=== PATIENT | female | born 1985 | race Caucasian/White ===

== ENCOUNTER → 2017-09-28 | Outpatient (CLI) | payer OTHER ==
[~2017-09-28] MED LIST: PREN-127 PO
== END ==
LOC: LAB 11:01
PROVIDERS: ATTEND Student in an Organized Health Care Education/Training Program
DX: Z34.91 Encounter for supervision of normal pregnancy, unspecified, first trimester (principal)
CPT/HCPCS: 87491; 87591

== ENCOUNTER → 2017-12-20 | Outpatient (CLI) | payer OTHER ==
[~2017-12-20] MED LIST changes: +FLU60VIA41 IM
--- NOTE | 2017-12-20 22:51 | RADIOLOGY IMAGING REPORT ---
FACILITY: [facility] [place] PATIENT NAME: Leatha Barragan : 1985 MR: [id number] V: [id number] EXAM DATE: ORDERING PHYSICIAN: IGNACIO SALAMANCA TECHNOLOGIST: Location: [facility] Patient: Leatha Barragan : 1985 Visit/Account:[id number] Date of Sevice: 12/20/2017 EXAMINATION: Transabdominal OB Ultrasound > 14 weeks with anatomic evaluation HISTORY: Anatomic survey Gestational age: 20 weeks 4 days, based on an CAMMIE of 05/05/2018. LMP(c): 07/29/2017. COMPARISON: None. FINDINGS: Intrauterine gestations: one presentation: Variable heart rate: 156 bpm Amniotic fluid index: 18.7 cm Largest amniotic fluid pocket 5.7 cm Placenta: Anterior/fundal without previa. Uterus: gravid, otherwise normal Maternal adnexa: Grossly negative. Maternal ovaries are not visualized. Cervix: Closed and long. Cervical length measures 4.8 cm. Gestational Parameters: BPD: 4.98 cm, 21 weeks 1 day HC: 18.49 cm, 20 weeks 6 days AC: 15.36 cm, 20 weeks 4 days FL: 3.31 cm, 20 weeks 3 days Average ultrasound age (AUA): 20 weeks 6 days Estimated weight (EFW): 359 grams +/- 53 grams EFW for LMP: 42nd percentile Anatomic Survey: The palate is suboptimally visualized. Remainder of the imaged anatomy is within normal l imits. Intracranial structures, 4-chamber heart, stomach, kidneys, urinary bladder, spine, 3-vessel cord and cord insertion are unremarkable. Two upper and two lower extremities visualized. Cardiac ventricula r outflow tracts, nose and lips are unremarkable in appearance. IMPRESSION: 1. Single live intrauterine gestation in variable presentation. 2. Average ultrasound age 20 weeks and 6 days, which correlates well with the reported clinical age. 3. Suboptimal visualization of the palate. Visualized anatomy is otherwise unremarkable. Patient is reportedly being brought back for additional anatomic imaging. Report Dictated By: Efrem Mcnulty MD at 12/20/2017 10:35 PM Report E-Signed By: Efrem Mcnulty MD at 12/20/2017 10:48 PM WSN:[id number]
== END ==
LOC: RAD 07:56
PROVIDERS: ATTEND Student in an Organized Health Care Education/Training Program
DX: Z34.92 Encounter for supervision of normal pregnancy, unspecified, second trimester (principal); Z3A.20 20 weeks gestation of pregnancy

== ENCOUNTER → 2018-01-04 | Outpatient (CLI) | payer OTHER | LOC: LAB 16:42 | PROVIDERS: ATTEND Student in an Organized Health Care Education/Training Program | DX: O26.899 Other specified pregnancy related conditions, unspecified trimester (principal) | CPT/HCPCS: 87088 ==

== ENCOUNTER → 2018-02-25 | Outpatient (CLI) | payer OTHER ==
[~2018-02-25] VITALS: Ht 167.6 cm; Wt 70.3 kg
[~2018-02-25] MED LIST changes: +ACETAMINOPHEN 325 MG TAB PO PRN; +DIPH0.5D12 IM
[2018-02-25 09:30] VITALS: BP 110/73; Ht 167.6 cm; Wt 70.3 kg
== END ==
LOC: L&D 09:10 → OB 09:10 → UNDOADMIN 09:10 → UNDODISIN 11:45 → EDSTATUS 03-01 07:27
PROVIDERS: ATTEND Student in an Organized Health Care Education/Training Program
DX: O26.893 Other specified pregnancy related conditions, third trimester (principal); W00.0XXA Fall on same level due to ice and snow, initial encounter; Z3A.30 30 weeks gestation of pregnancy
CPT/HCPCS: 59025

== ENCOUNTER → 2018-03-21 | Outpatient (CLI) | payer OTHER ==
[2018-02-25 09:30] VITALS: BMI 25.0
[~2018-03-21] MED LIST changes: -ACETAMINOPHEN 325 MG TAB PO PRN
== END ==
LOC: LAB 15:57
PROVIDERS: ATTEND Student in an Organized Health Care Education/Training Program
DX: O42.90 Premature rupture of membranes, unspecified as to length of time between rupture and onset of labor, unspecified weeks of gestation (principal)
CPT/HCPCS: 84112

== ENCOUNTER → 2018-03-28 | Outpatient (CLI) | payer OTHER ==
[2018-02-25 09:30] VITALS: BMI 25.0
[~2018-03-28] MED LIST changes: +CLIN300C99 PO; +FLUC150T40 PO
--- NOTE | 2018-03-28 13:11 | RADIOLOGY IMAGING REPORT ---
FACILITY: [facility] [place] PATIENT NAME: Leatha Barragan : 1985 MR: [id number] V: [id number] EXAM DATE: ORDERING PHYSICIAN: IGNACIO SALAMANCA TECHNOLOGIST: [facility] Patient: Leatha Barragan : 1985 Visit/Account:[id number] Date of Sevice: 03/28/2018 EXAMINATION: Limited Transabdominal OB Ultrasound >14 wks Without Full Anatomic Survey 03/28/2018 10:2 8 AM HISTORY: Possible PPROM COMPARISON: 12/22/2017, 12/20/2017 FINDINGS: Intrauterine gestations: one presentation: Breech, spine to maternal left heart rate: 130 bpm Amniotic fluid index: 19.5 cm Largest amniotic fluid pocket 6.9 cm Placenta: Posterior, wrapping towards the anterior wall without previa Uterus: gravid, otherwise normal Maternal adnexa: negative Cervix: Grossly closed. Transvaginal imaging was not done. Gestational Parameters: BPD: 8.6 cm 34 weeks 5 days HC: 30.8 cm 34 weeks 3 days AC: 30.8 cm 34 weeks 6 days FL: 6.6 cm 34 weeks 1 day Average ultrasound age (AUA): 34 weeks 4 days Estimated gestational age by LMP: 34 weeks 4 days Estimated weight (EFW): 2448 grams +/- 358 grams EFW for LMP percentile: 43 Anatomic Survey: Complete anatomic survey was not performed. IMPRESSION: 1. Single live intrauterine gestation; estimated ultrasound age 34 weeks 4 days (CAMMIE 05/05/2018) whic h correlates precisely with expected dates.. 2. Presentation is currently breech. 3. Normal WOJCIECH, 19.5 cm 4. Normal EFW, 2448 g (43rd percentile). Report Dictated By: Quirino Renteria MD at 03/28/2018 1:02 PM Report E-Signed By: Quirino Renteria MD at 03/28/2018 1:06 PM WSN:[email or web address]
== END ==
LOC: RAD 10:20
PROVIDERS: ATTEND Student in an Organized Health Care Education/Training Program
DX: Z02.9 Encounter for administrative examinations, unspecified (principal)

== ENCOUNTER 2018-04-11 14:41 | Outpatient (CLI) | payer OTHER ==
[2018-02-25 09:30] VITALS: Wt 70.3 kg
[~2018-04-11 14:41] MED LIST changes: +OSE75 PO
[2018-04-11 15:00] VITALS: BP 109/63
[2018-04-11] MEDS ORDERED: LR(*) 1000 ML BAG 1,000 ML IV PRN (15:18)
[2018-04-13] MEDS ORDERED: CEFI100T PO (09:04)
[2018-04-13] MEDS ORDERED: CLIN300C99 PO (09:53)
[2018-04-14] MEDS ORDERED: HYDR-653 PO (11:43)
== END 2018-04-11 18:00 | disposition home or self-care (01) ==
LOC: UNDOADMIN 14:41 → L&D 14:41 → OB 14:41 → UNDODISIN 18:00 → L&D 18:00 → EDSTATUS 04-13 18:04
PROVIDERS: ATTEND Student in an Organized Health Care Education/Training Program
DX: O47.03 False labor before 37 completed weeks of gestation, third trimester (principal); Z3A.36 36 weeks gestation of pregnancy
CPT/HCPCS: 59025; 99213; J7120

== ENCOUNTER 2018-04-19 06:08 | Inpatient (IN) | payer OTHER ==
[~2018-04-19] VITALS: Ht 165.1 cm; Wt 73.5 kg
[~2018-04-19 06:08] MED LIST changes: +CEFI100T PO; +HYDR-653 PO
[2018-04-19] MEDS ORDERED: LIDOCAINE 1% LOCAL 300 MG/30ML INJ PRN (06:10)
[2018-04-19] MEDS ORDERED: ONDANSETRON 4 MG/2 ML VIAL IVP PRN (06:10)
[2018-04-19] MEDS ORDERED: TERBUTALINE SULF 1 MG/ML VIAL SUBQ PRN (06:10)
[2018-04-19] MEDS ORDERED: OXYTOCIN 30 UNIT/D5LR 500 ML 500 ML IV PRN ×2 (06:10)
[2018-04-19] MEDS ORDERED: FAMOTIDINE(*) 20MG/50ML PREMIX 50 ML IVPB PRN (06:10)
[2018-04-19] MEDS ORDERED: METOCLOPRAMIDE 10 MG/2 ML SDV IVP PRN (06:10)
[2018-04-19] MEDS ORDERED: ceFAZolin(*) 2GM/D5W 50ML 50 ML IVPB PRN (06:10)
[2018-04-19] MEDS ORDERED: fentaNYL CITR 100 MCG/2 ML AMP IVP PRN (06:10)
[2018-04-19] MEDS ORDERED: ceFAZolin(*) 2GM/D5W 50ML 50 ML IVPB ONE (06:10)
[2018-04-19] MEDS ORDERED: ACETAMINOPHEN 325 MG TAB PO PRN ×2 (06:10→15:10)
[2018-04-19] MEDS: LR(*) 1000 ML BAG 1,000 ML IV PRN ×3 (06:20→16:11)
[2018-04-19 06:50] LABS: PLATELET COUNT, AUTOMATED 298 K/uL (150-450)
[2018-04-19] MEDS ORDERED: diphenhydrAMINE 50 MG/ML VIAL ONE (06:50)
[2018-04-19 07:50] VITALS: BP 110/75; Ht 165.1 cm; Wt 73.5 kg
[2018-04-19] MEDS ORDERED: CLINDAMYCIN(*) 900 MG/NS 50 ML 50 ML IVPB ONE ×2 (08:05→14:50)
[2018-04-19] MEDS ORDERED: FAMOTIDINE(*) 20MG/50ML PREMIX 50 ML IVPB SCH (09:00)
[2018-04-19] MEDS ORDERED: LIDOCAINE/PF 2% 200MG/10ML AMP 200 MG/10 ML AMPUL EPI PRN (09:20)
[2018-04-19] MEDS ORDERED: BUPIVACAINE 0.5% INJ 30ML VIAL EPI PRN (09:20)
[2018-04-19] MEDS ORDERED: fentaNYL CITR 100 MCG/2 ML AMP IT PRN (09:20)
[2018-04-19] MEDS ORDERED: FENTANYL/ROPIVACAINE 100 ML BAG EPI PRN (09:20)
[2018-04-19] MEDS ORDERED: EPIDURAL KEYS XX PRN (09:20)
[2018-04-19] MEDS ORDERED: BUPIVACAINE 0.25% MPF INJ EPI PRN (09:20)
[2018-04-19] MEDS ORDERED: LIDO/EPI 2% MPF 1:200,000 20ML EPI PRN (09:20)
[2018-04-19] MEDS ORDERED: ePHEDrine 25 MG/5 ML DISP.SYR IVP ONE (09:48)
[2018-04-19] MEDS ORDERED: ONDANSETRON 4 MG/2 ML VIAL ONE (09:49)
[2018-04-19] MEDS ORDERED: BUPIVACAINE 0.25% MPF INJ ONE (09:49)
[2018-04-19] MEDS ORDERED: fentaNYL CITR 100 MCG/2 ML AMP ONE (09:49)
[2018-04-19] MEDS ORDERED: FENTANYL/ROPIVACAINE 100ML BAG 100 ML ONE (09:50)
--- NOTE | 2018-04-19 10:40 | Anesthesia OB Pre-Anes Eval ---
History of Present Illness Anesthesia Start Date: Apr 19, 2018 Anesthesia Start Time: 09:52 OB Anesthesia Diagnosis: induction - medical EDC: May 05, 2018 : 3 Para: 2 Vital Signs: Vital Signs 04/19/18 07:50 Temp 97.8 Pulse 100 Resp 16 B/P (MAP) 110/75 (87) Pulse Ox 96 O2 Delivery Room Air Pain Ratin Heart Tones: 131 Result Diagram: 04/19/18 0639 Height (Inches): 65.00 Weight (Pounds): 162 Past Medical History Medical History: no pertinent history Surgical History: noncontributory Previous Anesthesia: epidural Hx Anesthesia Reactions: No Hx Family Anesthesia Reaction: No Current Medications: pitocin Home Meds Active Scripts Clindamycin Hcl (CLINDAMYCIN HCL) 300 Mg Capsule, 300 MG PO Q8H for 10 Days, #30 CAPSULE 0 Refills Prov:IGNACIO SALAMANCA DO 04/13/18 Reported Medications Vits W-Ca,Fe,Fa(<1MG) ( VITAMINS) 1 Each Tablet, 1 EACH PO DAILY, TAB 09/28/17 Discontinued Scripts Hydrocodone Bit/Acetaminophen (NORCO 5-325 TABLET) 1 Each Tablet, 1 EACH PO Q4- 6H PRN for PAIN, #20 TAB 0 Refills Prov:IGNACIO SALAMANCA DO 04/14/18 Oseltamivir Phosphate (TAMIFLU) 75 Mg Cap, 75 MG PO BID for 5 Days, #10 CAP 0 Refills Prov:IGNACIO SALAMANCA DO 04/11/18 Cefixime (SUPRAX) 100 Mg Tab.chew, 300 MG PO Q12H for 10 Days, #60 TAB 0 Refills Prov:IGNACIO SALAMANCA DO 04/13/18 Allergies: Coded Allergies: amoxicillin (Verified Allergy, Unknown, HIVES, 10/27/17) Anesthesia OB ROS Neurological: No migraines/headaches, No seizures, No neuropathy, No other ENT: Denies Tooth caps, Denies Loose teeth, Denies Chipped teeth, Denies Dentures, Denies Bridges, Denies Retainers, Denies Veneers, Denies Implants, Denies Tongue ring, Denies Other Pulmonary: No asthma, No smoker (pks/day/yrs), No other Airway Class: ll Cardiovascular ROS: No edema, No arrhythmia, No other GI ROS: clear liquids Last Solids Date: Apr 19, 2018 Last Solids Time: 05:30 ROS: No Herpes, No STD(s), No Liver Disease, No Renal Disease, No Other Endocrine ROS: No diabetes, No gestational diabetes, No thyroid disorder, No other Musculoskeletal ROS: No low back pain, No low back injury, No scoliosis, No other ASA Classification: 2 Assessment and Plan Anesthesia Plan: ANGIE GRAVES CRNA Apr 19, 2018 10:40
--- NOTE | 2018-04-19 10:44 | Procedure Note ---
Anesthetic Placement Note Anesthesia Plan: CSE Permit for Anesthesia Signed: Yes Anesthesia Technique: Patient Sitting Anesthesia Prep: Chlorhexidine Interspace: L 3-4 Local Anesthetic: 1% Lidocaine Amount Local - cc's: 3 Anesthesia Needle: 17g Touholiverio/Branff Anesthesia Attempts: 1 Loss of Resistance: Normal Saline Depth of ZIA (cm): 4.5 Epidural Needle Placement: No CSF, No Blood, No Parasthesia Intrathecal Needle: 27 Gauge Pencan Cerebral Spinal Fluid: Yes, Clear Catheter Insertion (cm): 4.5 (9 cm at skin) Catheter Type: Myers - Spring Wound Epidural Dressing: Tegaderm, Tape Anesthesia Tray: Lot Number ([id number]), Expiration Date (01/03), Reference Number ([id number]) Anesthesia Medications: Intrathecal Dose: mcg Fentanyl (10), mg Marcaine MPF (2.5), Time (1008) Epidural Test Dose: 1.5 Lido/Epi (1:200,000), Dose - mL (3), Time (1011), Negative Epidural Infusion: 0.2% Ropivicaine, With Fentanyl 2mcg/ml, Start Time: (1027) Epidural Pump Setting: Bolus Dose - mL (8), Lockout - Minutes (20), Maintenance Rate - mL/hr (6), Maximum per Hour - mL (30) Complications: None ANGIE TAYLOR CRNA Apr 19, 2018 10:44
--- NOTE | 2018-04-19 13:14 | Anesthesia Progress Note ---
Progress/Maintenance Anesthesia Note Date: Apr 19, 2018 Anesthesia Note Time: 12:30 Pain Intensity: 0 Pump: On Pump Rate (ML/HR): 6 Sensory Level: feels tightening, ok Motor Level: Bending Knees-Bilateral Dilatation: 5 Position: Right ANGIE TAYLOR CRNA Apr 19, 2018 13:14
[2018-04-19] MEDS ORDERED: ceFAZolin(*) 1 GM VIAL 1 GM in NS(*) 0.9% 100 ML ADDVANT BAG 100 ML IVPB SCH (14:00)
--- NOTE | 2018-04-19 14:15 | Anesthesia Progress Note ---
Assessment and Plan Anesthesia Plan: CSE Anesthesia Stop Day: Apr 19, 2018 Anesthesia Stop Time: 14:15 ANGIE TAYLOR CRNA Apr 19, 2018 14:15
[2018-04-19] MEDS ORDERED: HYDROCORTISONE 2.5% CR 30GM TB PR PRN (15:10)
[2018-04-19] MEDS ORDERED: MAGNESIUM HYDROXIDE* 30ML UDCP PO PRN (15:10)
[2018-04-19] MEDS ORDERED: GLYCERIN/WITCH HAZEL LEAF 1 PK TP PRN (15:10)
[2018-04-19] MEDS ORDERED: LANOLIN OINT 7 GM TUBE TP PRN (15:10)
[2018-04-19] MEDS ORDERED: BENZOCAINE 20% 60 ML BTL TP PRN (15:10)
[2018-04-19] MEDS: IBUPROFEN 800 MG TAB PO SCH (16:11)
--- NOTE | 2018-04-19 17:18 | History & Physical ---
History of Present Illness Age of Patient: 32 : 3 Para or TPAL: 2 EDC per LMP: May 05, 2018 Estimated Gestational Age: 37.5 Chief Complaint Gush fluids History of Present Illness 32 y/o @ 37-5/7 wga who presents to L&D for induction of labor secondary to premature rupture membranes. Patient has received betamethasone at 33 weeks for the same complaint. Did receive 7 days of antibiotics. Has not had leaking since being discharged from the hospital was discussed with MFM to either whittle 39 weeks or deliver at 37 area MFM stated to proceed at 37 weeks secondary to risk of infection. Patient denies any fevers or chills. Was diagnosed with influenza last week and has completed 5 days of Tamiflu. Patient reports no fevers or chills. Good movement. History Patient's Blood Type: A Positive Rubella Status: Immune Group B Strep Screen: Positive Obstetrical History: . Past Medical History: Denies. Influenza last week. Eye infection last week. Allergies: Coded Allergies: amoxicillin (Verified Allergy, Unknown, HIVES, 10/27/17) Social History: Denies X 3. Family History: FHx: diabetes mellitus MGM MGF Med Rec Home Meds Active Scripts Clindamycin Hcl (CLINDAMYCIN HCL) 300 Mg Capsule, 300 MG PO Q8H for 10 Days, #30 CAPSULE 0 Refills Prov:IGNACIO SALAMANCA DO 04/13/18 Reported Medications Vits W-Ca,Fe,Fa(<1MG) ( VITAMINS) 1 Each Tablet, 1 EACH PO DAILY, TAB 09/28/17 Discontinued Scripts Hydrocodone Bit/Acetaminophen (NORCO 5-325 TABLET) 1 Each Tablet, 1 EACH PO Q4- 6H PRN for PAIN, #20 TAB 0 Refills Prov:IGNACIO SALAMANCA DO 04/14/18 Oseltamivir Phosphate (TAMIFLU) 75 Mg Cap, 75 MG PO BID for 5 Days, #10 CAP 0 Refills Prov:IGNACIO SALAMANCA DO 04/11/18 Cefixime (SUPRAX) 100 Mg Tab.chew, 300 MG PO Q12H for 10 Days, #60 TAB 0 Refills Prov:IGNACIO SALAMANCA DO 04/13/18 Review of Systems All Systems Reviewed/Normal: Yes, Except as Noted Constitutional: No Fever, No Weight Loss, No Weight Gain, No Chills, No Night Sweats, No Other Neurological: No Syncope, No Confusion, No Weakness, No Dizziness, No Slurred Speech, No Other Eyes: No Vision Change, No Loss of Vision, No Photophobia, No Other ENT: No Hearing Loss, No Sinus Congestion, No Sore Throat, No Ear Ache, No Tinnitus, No Other Cardiovascular: No Chest Pain, No Palpitations, No Orthostatic Hypotension, No Other Respiratory: No Shortness of Breath, No Cough, No Wheezing, No Other Gastrointestinal: No Nausea, No Vomiting, No Diarrhea, No Dysphagia, No Constipation, No Early Satiety, No Hematemesis, No Hematochezia, No Melena, No Abdominal Pain, No Other Genitourinary: No Dysuria, No Hematuria, No Urinary Incontinence, No Other Musculoskeletal: No Pain, No Sprain, No Strain, No Impaired Mobility, No Other Psychiatric: No Depression, No Anxiety, No Other Exam General Exam Vital Signs Vital Signs Date Time Temp Pulse Resp B/P (MAP) Pulse Ox O2 Delivery O2 Flow Rate FiO2 04/19/18 07:50 97.8 100 16 110/75 (87) 96 Room Air General Apperance: Alert/Awake/No Acute Distress Neuro: No Gross deficits Eyes: Normal Extraocular Movement & Vison, PERRLA Cardiovascular: Regular Rate and Rhythm Respiratory: No Respiratory Distress, Clear to Auscultation Abdomen: Gravid - Non-Tender Musculoskeletal: No Weakness/Pain Extremities: No Cyanosis,Clubbing or Edema Integumentary: Skin Intact without Lesions or Rash Psychological: Alert & Oriented X3, Appropriate Mood & Affect Vaginal Discharge/Fluid?: Clear Fluid (with amniotomy at 920) Cervical Dialation: 3 Cervical Effacement (%): 50 Cervical Consistency: Soft Cervical Position: Anterior Station: -2 Presentation: Vertex Uterine Contractions(Q min): 8 Uterine Contraction Strength: Moderate UC Resting Tone: Soft Fetus Feeling Movement?: Yes Heart Tone Variabilty: Moderate FHT Accelerations: Present FHT Decelerations: None FHT Category: I Medical Decision Making Data Points Result Diagram: 04/19/18 0639 Pre-Admit Course Medical Record Review: Yes VTE Prophylasis: Adult Deep Vein Thrombosis/Pulmonary: No 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 Patient underwent amniotomy and is on oxytocin. Did receive cefazolin 2 g IV every 1. Patient did have rash and sore nature throat afterwards. Will add 2 allergies. Continue oxytocin expect vaginal delivery. (2) GBS (group B Streptococcus carrier), +RV culture, currently IGNACIO SALAMANCA DO Apr 19, 2018 17:18
--- NOTE | 2018-04-19 17:40 | OB Delivery Note ---
Delivery Note Vaginal Delivery Type: Spont. Vaginal Delivery Delivery Date: Apr 19, 2018 Delivery Time: 13:59 Estimated Gestational Age(wks): 37.5 Length of Labor Stage I (hrs): 8 Length of Labor Stage II (hrs): 0.5 Labor Stage III (minutes): 30 Delivery Anesthesia: Epidural Infant Sex: Female Weight (gms): 2992 (6#9OZ) Apgars: 1 Minute (8), 5 Minute (9) Repair Needed: 2nd Degree Delivery Complications: Retained Placenta (MANUAL EXTRACTION after 30 min) Home Care Assistant in Attendence: IGNACIO Mchguh DO Apr 19, 2018 17:40
[2018-04-19 19:20] VITALS: BP 106/65
--- NOTE | 2018-04-19 19:59 | DELIVERY NOTE ---
DELIVERY DATE: April 19, 2018 SURGEON: Anthony Mchugh DO ANESTHESIA: Epidural. PREOPERATIVE DIAGNOSES 1. A 32-year-old 3, para 2, at 37-5/7 weeks gestation. 2. Premature rupture of membranes. POSTOPERATIVE DIAGNOSES 1. A 32-year-old 3, para 2, at 37-5/7 weeks gestation. 2. Premature rupture of membranes. 3. Delivered. PROCEDURES PERFORMED 1. Spontaneous vaginal delivery. 2. Repair of midline laceration. 3. Manual extraction of retained placenta. FINDINGS Live-born female at 1359 with Apgars of 8 and 9, weighing 2982 g, 6 pounds 9 ounces, three-vessel cord, intact placenta, over a second-degree midline laceration. PATHOLOGY None. ESTIMATED BLOOD LOSS 500 mL COMPLICATION Retained placenta, removed 30 minutes after delivery via manual extraction. CONDITION Stable times two. Infant and mother remained in the LDRP. COUNTS Correct for all needles, laps, sponges, and instruments. INDICATIONS AND CONSENT Patient is a 32-year-old 3, para 2, who had premature rupture of membranes at 33 weeks. She was admitted to [facility] with positive AmniSure. She received steroids at that point. She had no further leaking and did have three negative tests. After her second hospital day, patient was discharged home. After discussing patient's care with M and the possibility of reseal versus no further leaking, it was decided that it was appropriate to proceed with induction of labor after 37 weeks. Patient was counseled accordingly, and she presented to Labor and Delivery for induction of labor. She was started on oxytocin. She was dilated to 3 cm. She underwent amniotomy approximately three hours after Ancef was given for GBS prophylaxis. She progressed slowly, but eventually got to complete and +2 station. Once fully dilated, the patient was coached by nursing staff and was prepped for vaginal delivery. DELIVERY SUMMARY Patient was placed in dorsal lithotomy position. She was prepped and draped in the usual sterile manner. Upon maternal pushing, the head delivered in a controlled manner, followed by the anterior shoulder in a gentle downward motion and the posterior shoulder in a gentle upward motion. The remainder of the 's body delivered spontaneously. The mouth and nose were bulb suctioned. A vigorous female infant was then placed on maternal abdomen where she was cleaned and dried. After approximately 2-1/2 minutes, the cord was clamped times two and cut by the 's father. After the cord was clamped, cord blood gases were obtained. Gentle cord traction was applied 30 minutes with no delivery of the placenta. The patient was counseled for manual extraction of placenta for retained placenta and consented accordingly. Manual extraction: Surgeon's hand was placed inside the uterus. In a bimanual manner, the placenta was located. The cotyledons were sheared off of the uterine lining, and the placenta was removed in its entirety. It was inspected and noted, appeared to be intact with all cotyledons present and accounted for. Uterus was massaged. Oxytocin was infused to help with uterine tone. Uterus was deemed firm. Because of the manual extraction, the patient was given clindamycin 900 mg IV times one dose to decrease chances of endometritis. Patient was cleaned, the labor bed was reassembled, and mother and infant were allowed to continue to faust. [facility]
[2018-04-19] MEDS: DOCUSATE CALCIUM 240 MG CAP PO SCH (21:50)
[2018-04-19] MEDS: APAP/HYDROCODONE 325/5 TAB PO PRN (21:50)
[2018-04-20] VITALS (7 sets, daily range): BP systolic 91–103; BP diastolic 57–75
[2018-04-20] MEDS: IBUPROFEN 800 MG TAB PO SCH ×3 (02:26→16:58)
[2018-04-20] MEDS: APAP/HYDROCODONE 325/5 TAB PO PRN ×2 (03:06→07:56)
[2018-04-20] MEDS: DOCUSATE CALCIUM 240 MG CAP PO SCH ×2 (08:55→21:02)
[2018-04-20] MEDS ORDERED: CLINDAMYCIN 150 MG CAP PO SCH (10:00)
[2018-04-20] MEDS: CLINDAMYCIN HCL 300 MG PO SCH ×2 (10:16→19:18)
--- NOTE | 2018-04-20 12:48 | Anesthesia Post Eval Note ---
Anesthesia Post Eval Note Vital Signs 04/19/18 04/20/18 07:50 07:50 Temp 97.8 Pulse 82 Resp 16 B/P (MAP) 97/57 (70) Pulse Ox 96 O2 Delivery Room Air Pt able to participate in Eval: Yes Cardiovascular Status: Satisfactory Respiratory Status: Satisfactory Pain Managment: Satisfactory PO Nausea/Vomiting: Satisfactory Temperature Management: Satisfactory Mental Status: Alert, Oriented X3 Post-Op Hydration Status: Satisfactory, Tolerating PO Well, Voiding w/o Difficulty Anesthesia Type: ANGIE GRAVES CRNA Apr 20, 2018 12:48
--- NOTE | 2018-04-20 12:51 | OB/GYN Progress Note ---
OB Subjective Progress Notes Subjective Doing good this morning. Pt reports baby is struggling with . Tolerating regular diet. Ambulatory. Voiding with out any difficulty. Lochia appropriate. GI: NEG Nausea, NEG Vomiting, NEG Flatus, NEG Bowel Movement : Voiding Well, Vaginal Bleeding, Scant Pain: Mild Neurological: No Headache, No Other Eyes: No Visual Disturbances OB Objective Physical Exam Vital Signs Date Time Temp Pulse Resp B/P (MAP) Pulse Ox O2 Delivery O2 Flow Rate FiO2 04/20/18 07:50 97.8 82 16 97/57 (70) Room Air 04/19/18 07:50 96 Intake and Output 04/20/18 07:00 Intake Total 0 ml Output Total 675 ml Balance -675 ml Intake Oral 0 ml Output Urine Total 675 ml # Voids 4 General Appearance: Alert/Awake/No Acute Distress Neurological: No Gross deficits Eyes: Normal Extraocular Movement & Vison, PERRLA ENT: Normal Neck: No Masses Cardiovascular: Normal Rhythm & Peripheral Pulses, Regular Rate and Rhythm Respiratory: No Respiratory Distress, Clear to Auscultation Abdomen: Soft, Non-Tender, Non-Distended, Fundus Firm Extremities: No Cyanosis,Clubbing or Edema Integumentary: Skin Intact without Lesions or Rash Psychological: Alert & Oriented X3, Appropriate Mood & Affect Result Diagram: 04/20/18 0608 Assessment and Plan 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 Tolerating regular diet. Plan to stay additional night for help and monitoring for post bleeding. (2) GBS (group B Streptococcus carrier), +RV culture, currently IGNACIO SALAMANCA DO Apr 20, 2018 12:51
[2018-04-20] MEDS ORDERED: CLINDAMYCIN HCL 300 MG PO SCH (18:00)
[2018-04-21] MEDS: CLINDAMYCIN HCL 300 MG PO SCH ×2 (01:50→09:35)
[2018-04-21] MEDS: IBUPROFEN 800 MG TAB PO SCH ×2 (01:50→08:34)
[2018-04-21 03:25] VITALS: BP 96/73
[2018-04-21] MEDS: DOCUSATE CALCIUM 240 MG CAP PO SCH (08:34)
[2018-04-21 08:46] VITALS: BP 107/96
--- NOTE | 2018-04-21 09:06 | OB/GYN Progress Note ---
OB Subjective Progress Notes Subjective day #2. Patient tolerated regular diet. Ambulatory. Voiding without any difficulty. Breast-feeding with pumping. Lochia appropriate. Pain controlled with by mouth pain medications. No fevers or chills. GI: NEG Nausea, NEG Vomiting, NEG Flatus, NEG Bowel Movement : Voiding Well, Vaginal Bleeding, Scant Pain: Mild, Tolerating PO Pain Meds Eyes: No Visual Disturbances OB Objective Physical Exam Vital Signs Date Time Temp Pulse Resp B/P (MAP) Pulse Ox O2 Delivery O2 Flow Rate FiO2 04/21/18 08:46 98.1 92 16 107/96 (100) 93 Room Air Intake and Output 04/21/18 07:00 Intake Total 480 ml Balance 480 ml Intake Oral 480 ml # Voids 3 General Appearance: Alert/Awake/No Acute Distress Neurological: No Gross deficits Eyes: Normal Extraocular Movement & Vison, PERRLA ENT: Normal Neck: No Masses Cardiovascular: Normal Rhythm & Peripheral Pulses, Regular Rate and Rhythm Respiratory: No Respiratory Distress, Clear to Auscultation Abdomen: Soft, Non-Tender, Non-Distended, Fundus Firm Extremities: No Cyanosis,Clubbing or Edema Integumentary: Skin Intact without Lesions or Rash Psychological: Alert & Oriented X3, Appropriate Mood & Affect Result Diagram: 04/20/18 0608 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 Patient's baby is held for bilirubin or other concerns patient will stay to rooming in status. (2) GBS (group B Streptococcus carrier), +RV culture, currently IGNACIO SALAMANCA DO Apr 21, 2018 09:06
[2018-04-21] MEDS ORDERED: LOR5/325 PO (09:08)
[2018-04-21] MEDS ORDERED: IBUP800T37 PO (09:08)
--- NOTE | 2018-04-21 09:10 | OB/GYN Discharge Summary ---
Discharge Summary Reason for Hosp/Final Diag: (1) 37 weeks gestation of Status: Resolved Hospital Course & Plan: Patient presented for scheduled induction of labor secondary to premature rupture membranes at 33 weeks. Patient underwent induction without any difficulties. See delivery note for details procedure. Patient remained in the hospital 2 days secondary to pain as well as monitoring baby. Patient was discharged home on day #2. (2) GBS (group B Streptococcus carrier), +RV culture, currently Lates Vital Signs Vital Signs Date Time Temp Pulse Resp B/P (MAP) Pulse Ox O2 Delivery O2 Flow Rate FiO2 04/21/18 08:46 98.1 92 16 107/96 (100) 93 Room Air Weight (Pounds): 162 Result Diagram: 04/20/18 0608 Condition: Improved Discharge: Home Home Meds Active Scripts Ibuprofen (IBUPROFEN) 800 Mg Tablet, 800 MG PO Q8H, #20 TAB 0 Refills Prov:IGNACIO SALAMANCA DO 04/21/18 Hydrocodone Bit/Acetaminophen (HYDROCODON-ACETAMINOPHEN 5-325) 1 Each Tablet, 1- 2 EACH PO Q6H PRN for PAIN, #20 TAB 0 Refills max 8 tab/day Prov:IGNACIO SALAMANCA DO 04/21/18 Clindamycin Hcl (CLINDAMYCIN HCL) 300 Mg Capsule, 300 MG PO Q8H for 10 Days, #30 CAPSULE 0 Refills Prov:IGNACIO SALAMANCA DO 04/13/18 Reported Medications Vits W-Ca,Fe,Fa(<1MG) ( VITAMINS) 1 Each Tablet, 1 EACH PO DAILY, TAB 09/28/17 Discontinued Scripts Hydrocodone Bit/Acetaminophen (NORCO 5-325 TABLET) 1 Each Tablet, 1 EACH PO Q4- 6H PRN for PAIN, #20 TAB 0 Refills Prov:IGNACIO SALAMANCA DO 04/14/18 Oseltamivir Phosphate (TAMIFLU) 75 Mg Cap, 75 MG PO BID for 5 Days, #10 CAP 0 Refills Prov:IGNACIO SALAMANCA DO 04/11/18 Follow up with: [facility] [phone] Follow up in: 6 wks PP or PO, 2 wks PO Discharge Diet: As Tolerates Discharge Activity: As Tolerates, Pelvic Rest IGNACIO SALAMANCA DO Apr 21, 2018 09:10
[2018-04-21 12:33] VITALS: BP 98/73
[2018-04-21] MEDS ORDERED: INFLUENZA VIRUS VAC 0.5ML SYR IM ONLY ONE (15:10)
[2018-04-21] MEDS ORDERED: DIPHTH/TETANUS/ACEL. PERTUSSIS IM ONLY ONE (15:10)
[2018-04-21] MEDS ORDERED: MEASLES,MUMP,RUBELLA VAC 0.5ML SUBQ ONE (15:10)
== END 2018-04-21 13:59 | disposition home or self-care (01) | DRG 807 ==
LOC: OB 06:08
PROVIDERS: ADMIT Student in an Organized Health Care Education/Training Program; ATTEND Student in an Organized Health Care Education/Training Program
PROC: 10E0XZZ Delivery of Products of Conception, External Approach (ICD-10-PCS; principal; 2018-04-19)
PROC: 0KQM0ZZ Repair Perineum Muscle, Open Approach (ICD-10-PCS; 2018-04-19)
PROC: 10D17Z9 Manual Extraction of Products of Conception, Retained, Via Natural or Artificial Opening (ICD-10-PCS; 2018-04-19)
PROC: 10907ZC Drainage of Amniotic Fluid, Therapeutic from Products of Conception, Via Natural or Artificial Opening (ICD-10-PCS; 2018-04-19)
DX: O99.824 Streptococcus B carrier state complicating childbirth (principal); Z37.0 Single live birth; O70.1 Second degree perineal laceration during delivery; O42.02 Full-term premature rupture of membranes, onset of labor within 24 hours of rupture; Z3A.37 37 weeks gestation of pregnancy; Z88.0 Allergy status to penicillin
CPT/HCPCS: 36415; 85025; 85027; 86850; 86900; 86901; J0690; J1200; J2405; J2590; J3010; J3490; J7120; S0020